=== PATIENT | male | born 1970 | race Caucasian/White ===

== ENCOUNTER → 2020-12-17 | Outpatient (CLI) | payer BC ==
[2020-12-17 16:26] LABS: Appearance,Urine Clear (Clear); Bilirubin,Urine Negative (Negative); Blood,Urine Moderate (Negative); Color,Urine Yellow; Glucose,Urine (UA) Negative (Negative); Hyaline Casts,Urine 1 /lpf (0-2); Ketones,Urine Negative (Negative); Leukocyte Esterase,Urine Negative (Negative); Mucus,Urine Occasional /hpf; Nitrite,Urine Negative (Negative); PH, Urine 5.5 (5.0-8.0); Protein,Urine 1+ (Negative); RBC,Urine 8 /hpf (0-5); Specific Gravity,Urine 1.016 (1.001-1.035); Urobilinogen,Urine <2.0 mg/dL (<2.0); WBC,Urine 1 /hpf (0-5)
[2020-12-17 23:59] LABS: Basophils # (A) 0.05 X 10*3/uL (0.00-0.10); Basophils % (A) 0.7 %; Eosinophils # (A) 0.15 X 10*3/uL (0.04-0.35); Eosinophils % (A) 2.1 %; HCT 45.1 % (39.6-50.0); HGB 15.1 g/dL (13.0-17.0); Lymphocytes # (A) 1.79 X 10*3/uL (0.90-5.00); Lymphocytes % (A) 25.2 %; MCH 30.1 pg (27.0-32.0); MCHC 33.5 g/dL (32.0-37.0); Mean Platelet Volume 10.8 fL (9.5-12.2); Monocytes # (A) 0.81 X 10*3/uL (0.20-1.00); Monocytes % (A) 11.4 %; Neutrophils # (A) 4.27 X 10*3/uL (1.80-7.70); Neutrophils % (A) 60.2 %; Platelet Count 256 X 10*3/uL (140-440); RBC 5.01 X 10*6/uL (4.40-5.60); RDW 12.6 % (11.5-14.5); Reticulocyte % 2.47 % (0.10-1.80)
[2020-12-18 01:46] LABS: Erythrocyte Sedimentation Rate 4 mm/Hr (0-15)
[2020-12-18 04:36] LABS: Protein, Total 7.2 g/dL (6.2-8.2)
[2020-12-18 05:23] LABS: % Iron Saturation 30.03 (15.00-50.00); ALT 52 U/L (10-49); AST 39 U/L (14-35); Albumin 4.6 g/dL (3.8-4.9); Alkaline Phosphatase 95 U/L (41-126); Blood Urea Nitrogen 11.8 mg/dL (9.0-27.0); Calcium 9.7 mg/dL (8.7-10.3); Carbon Dioxide 21.6 mmol/L (21.6-31.8); Chloride 105 mmol/L (96-109); Chol/HDL Ratio 3.15 Ratio; Globulin 2.7 g/dL (1.6-3.3); Glucose 86 mg/dL (70-110); Iron 103 ug/dL (65-175); LDL Cholesterol,Calculated 80.1 mg/dL (0.0-131.0); Sodium 142 mmol/L (135-145); Total Iron Binding Capacity 343 ug/dL (228-460); Total Protein 7.3 g/dL (6.2-8.2); Uric Acid 6.4 mg/dL (3.7-8.7); VLDL Calculation 14.84 mg/dL (5.00-40.00)
[2020-12-18 05:51] LABS: Rheumatoid Factor, Qnt <10 IU/mL (0-15)
[2020-12-18 10:58] LABS: LDH 206 U/L (120-246)
[2020-12-18 15:00] LABS: Free Kappa Lt Chain Qnt, Serum 1.84 mg/dL (0.33-1.94)
[2020-12-19 15:11] LABS: Albumin 4.18 g/dL (3.80-4.90); Gamma Globulin 1.03 g/dL (0.70-1.50)
== END | disposition home or self-care (01) ==
LOC: LABWHC1 15:16
PROVIDERS: ATTEND Internal Medicine
DX: I10 Essential (primary) hypertension (principal); G62.9 Polyneuropathy, unspecified; G47.33 Obstructive sleep apnea (adult) (pediatric); E78.2 Mixed hyperlipidemia
CPT/HCPCS: 36415; 80053; 80061; 81001; 82306; 82607; 82728; 82746; 83036; 83540; 83550; 83615; 83883; 84165; 84443; 84550; 85025; 85045; 85652; 86038; 86200; 86431